=== PATIENT | female | born 1955 | race Caucasian/White ===

== ENCOUNTER 2019-01-06 11:44 | Emergency (ER) | payer OTHER ==
--- NOTE | 2019-01-06 12:10 | PDOC ---
History of Present Illness - General Chief Complaint: Migraine Headache Stated Complaint: HEADACHE Time Seen by Provider: 01/06/19 11:50 History Source: Patient Exam Limitations: No Limitations - History of Present Illness Initial Comments: 01/06/19 12:10 63y F hx of raynauds syndrome, htn, presents with intermittent headache for the past few months. Pt describes the headache as a pressure/aching sensation at the base of her R neck/scalp that is intermittent, lasts from minutes to maybe 1 /2 hr before resolving. She usually puts her hand on it and massages it with improvement - rarely needs to take any other medications for it. pt denies any recent injury, falls, vision changes, numbnes/tingling/weakness, neck pain, cp, sob, abd pain, n/v, feve/chills. there is no pattern to th epain, she feels it a few times a day throughout the day and is not associated with any movements/ positions or activities. socia: denies etoh abuse, drug use, not currently working Past History - Past Medical History Allergies/Adverse Reactions: Allergies Allergy/AdvReac Type Severity Reaction Status Date / Time No Known Allergies Allergy Verified 01/06/19 11:45 Home Medications: Ambulatory Orders Calcium 400 mg PO BID 04/29/14 Amlodipine Besylate 2.5 mg PO DAILY 01/06/19 Multivitamin/Iron/Folic Acid [Centrum Adults Tablet] 1 each PO DAILY 01/06/19 Anemia: No Asthma: No Cancer: No Cardiac Disorders: No CVA: No COPD: No CHF: No Dementia: No Diabetes: No GI Disorders: No Disorders: No HTN: No Hypercholesterolemia: No Liver Disease: No Seizures: No Thyroid Disease: No - Surgical History Abdominal Surgery: No Appendectomy: No Cardiac Surgery: No Cholecystectomy: No Lung Surgery: No Neurologic Surgery: No Orthopedic Surgery: Yes (RIGHT HIP REPLACEMENT) - Suicide/Smoking/Psychosocial Hx Smoking History: Former smoker Have you smoked in the past 12 months: No Hx Alcohol Use: No Drug/Substance Use Hx: No Substance Use Type: None Hx Substance Use Treatment: No Review of Systems - Review of Systems Able to Perform ROS?: Yes Comments:: 01/06/19 12:15 Constitutional - no reported Fever, Chills, HEENT: no reported vision changes, sore throat Respiratory: no reported cough, sob, hemoptysis Cardiac: no reported chest pain, palpitations, light headedness, leg swelling Abd/GI: no reported abd pain, nausea, vomiting, blood per rectum, melena, diarrhea : no reported dysuria, frequency, discharge Musculskelatal - no reported back pain, joint swelling skin - no reported bruising, erythema, rash neurological: no reported headache, numbness, focal weakness, tingling, ataxia, hematologic: no reported easy bruising, easy bleeding *Physical Exam - Physical Exam Comments: 01/06/19 12:15 GENERAL: The patient is awake, alert, and fully oriented, Nontoxic - in no acute distress. HEAD: Normocephalic, atraumatic. no temporal masses or pulseations, no focal tendernses EYES: extraocular movements intact, sclera anicteric, conjunctiva clear. ENT: Normal voice, Moist mucous membranes. NECK: Normal range of motion, supple, no rashes on neck, no focal bony or paraspinal tenderness LUNGS: Breath sounds equal, clear to auscultation bilaterally. No wheezes, no rhonchi, no rales. HEART: Regular rate and rhythm, normal S1 and S2 without murmur, rub or gallop. EXTREMITIES: Normal range of motion, no edema. PSYCH: Normal mood, normal affect. SKIN: Warm, Dry, normal turgor, NEURO: Mental status: The patient is oriented x3. Cranial nerves: Cranial nerves II through XII are intact Motor: The upper extremities are 5 over 5 in all muscle groups. The lower extremities are 5 over 5 in all muscle groups. Negative pronator drift Sensation: Sensation is intact to light touch throughout. romberg negative Cerebellar: Eosxzy-parkiw-gotc is normal in both upper extremities. Gait: Normal. Heel and toe walking are normal. Medical Decision Making - Medical Decision Making 01/06/19 12:15 suspect tension headache, possible muscle strain no current symptoms supportive care at home pmd fu return precautions were discussed I discussed the physical exam findings, ancillary test results and final diagnoses with the patient. I answered all of the patient's questions. The patient was satisfied with the care received and felt comfortable with the discharge plan and treatment plan. The patient will call their primary care physician within 24 hours to arrange follow-up and will return to the Emergency Department with any new, persistent or worsening symptoms. *DC/Admit/Observation/Transfer Diagnosis at time of Disposition: Tension headache - Discharge Dispostion Disposition: HOME Condition at time of disposition: Improved Decision to Admit order: No - Referrals Referrals: Andrew De Leon MD [Non Staff, Medical] - - Patient Instructions Printed Discharge Instructions: DI for Hormonal and Tension Headaches Additional Instructions: Return to the emergency department immediately with ANY new, persistent or worsening symptoms including worsening headache, vision changes, numbness/ tingling/weakness, persistent nausea and vomiting or any other concerns. Make sure you are getting adaqute sleep and hydration. You MUST call and follow up with your doctor as scheduled for further evaluation of your symptoms. Your emergency department visit is not complete without a followup with your doctor for reevaluation. Results were discussed with you. Please make sure your doctor reviews the results of your emergency evaluation. - Post Discharge Activity
[2019-01-06 12:13] VITALS: BP 135/70; PULSE 74; TEMP 98.5; BMI 26.2
== END 2019-01-06 12:14 | disposition home or self-care (01) ==
LOC: FER 11:44
DX: G44.209 Tension-type headache, unspecified, not intractable (principal); I10 Essential (primary) hypertension; I73.00 Raynaud's syndrome without gangrene; Z87.891 Personal history of nicotine dependence; Z96.641 Presence of right artificial hip joint
CPT/HCPCS: 99281-25

== ENCOUNTER 2019-04-10 11:57 | Emergency (ER) | payer OTHER ==
[2019-04-10 12:02] VITALS: BP 135/72; PULSE 88; TEMP 98.1; BMI 21.2
--- NOTE | 2019-04-10 12:16 | PDOC ---
Attending Attestation - Resident Resident Name: KrzysztofLorena - ED Attending Attestation I have performed the following: I have examined & evaluated the patient, The case was reviewed & discussed with the resident, I agree w/resident's findings & plan, Exceptions are as noted - HPI HPI: 04/10/19 12:28 63y F hx of reynauds, htn presents with 3-4 days of rash to her buttock Patient notes that the rash began as itchiness in her backside but noted that it seemed to spread to her groin,. Patient denies any fever, chills, pain, Denies any known allergies or new exposures. Exam: non indurated/not warm erythemadous patches on L superior aspect of L glutial fold, along thne inferior posterior L glutial fold and along the L medial anterior groin. suspect possibel S2 zoster will treat with valtrex will refer to PMD no signs of suprainfection return precautions were discussed - Physicial Exam PE: 04/10/19 13:29 see above - Medical Decision Making 04/10/19 13:29 see above
--- NOTE | 2019-04-10 13:00 | PDOC ---
History of Present Illness - General Chief Complaint: Rash Stated Complaint: rash Time Seen by Provider: 04/10/19 11:59 - History of Present Illness Initial Comments: 04/10/19 12:56 HPI: 63 y/o with hx of raynauds and HTN presenting with rash that started 3 days ago. It started on left lower back and she noticed additional areas of involvement including her buttock and left inguinal region. Rash is pruritic. She denies pain, numbness, tingling, fever, chills. She denies any drainage or foul odor. PMHx: as noted above ROS: as noted SHx: Denies tobacco use; no alcohol use; no rec drugs Allergies: NKDA ROS: GENERAL/CONSTITUTIONAL: No fever or chills. No weakness. HEAD, EYES, EARS, NOSE AND THROAT: No change in vision. No ear pain or discharge. No sore throat. CARDIOVASCULAR: No chest pain or shortness of breath RESPIRATORY: No cough, wheezing, or hemoptysis. GASTROINTESTINAL: No nausea, vomiting, diarrhea or constipation. GENITOURINARY: No dysuria, frequency, or change in urination. MUSCULOSKELETAL: No joint or muscle swelling or pain. No neck or back pain. SKIN: +rash NEUROLOGIC: No headache, vertigo, loss of consciousness, or change in strength/ sensation. ENDOCRINE: No increased thirst. No abnormal weight change HEMATOLOGIC/LYMPHATIC: No anemia, easy bleeding, or history of blood clots. ALLERGIC/IMMUNOLOGIC: No hives or skin allergy. PE: GENERAL: Awake, alert, and fully oriented, no acute distress HEAD: No signs of trauma, normocephalic, atraumatic EYES: EOMI, sclera anicteric, conjunctiva clear ENT: Auricles normal inspection, hearing grossly normal, nares patent, oropharynx clear without exudates. Moist mucosa NECK: Normal ROM, no lymphadenopathy LUNGS: No increased work of breathing, symmetrical chest rise, clear to auscultation bilaterally, no wheezes, crackles or rhonchi HEART: Regular rate and rhythm, normal S1 and S2, no murmurs, peripheral pulses 2+ and equal bilaterally. ABDOMEN: Soft, nondistended, nontender, normoactive bowel sounds. No guarding, no rebound. No masses. No CVAT MUSCULOSKELETAL: Normal inspection, FROM NEUROLOGICAL: Cranial nerves II through XII grossly intact. Normal speech, normal gait, no focal sensorimotor deficits SKIN: left low back with 2cm diameter erythematous base with central area of excoriation with similar focal appearance in medial gluteal region and left inguinal region; posterior rash appears along S2 dermatome. Past History - Past Medical History Allergies/Adverse Reactions: Allergies Allergy/AdvReac Type Severity Reaction Status Date / Time No Known Allergies Allergy Verified 04/10/19 11:58 Home Medications: Ambulatory Orders Valacyclovir HCl [Valtrex] 1,000 mg PO TID 7 Days #21 tablet 04/10/19 Anemia: No Asthma: No Cancer: No Cardiac Disorders: No CVA: No COPD: No CHF: No Dementia: No Diabetes: No GI Disorders: No Disorders: No HTN: No Hypercholesterolemia: No Liver Disease: No Seizures: No Thyroid Disease: No - Surgical History Abdominal Surgery: No Appendectomy: No Cardiac Surgery: No Cholecystectomy: No Lung Surgery: No Neurologic Surgery: No Orthopedic Surgery: Yes (RIGHT HIP REPLACEMENT) - Psycho Social/Smoking Cessation Hx Smoking History: Never smoked Have you smoked in the past 12 months: No Hx Alcohol Use: No Drug/Substance Use Hx: No Substance Use Type: None Hx Substance Use Treatment: No *Physical Exam - Vital Signs Last Vital Signs Temp Pulse Resp BP Pulse Ox 98.1 F 88 18 135/72 100 04/10/19 11:57 04/10/19 11:57 04/10/19 11:57 04/10/19 11:57 04/10/19 11:57 Medical Decision Making - Medical Decision Making 04/10/19 13:03 63 y/o with hx of raynauds and HTN presenting with rash that started 3 days ago which appears to be along S2 dermatome with additional inguinal legion. VSS, AF. -appearance not typical shingles, but will treat empirically with valtrex x7days and DC with PCP followup -patient understands and plan and contact precautions; all questions answered. Discharge - Discharge Information Problems reviewed: Yes Clinical Impression/Diagnosis: Rash Condition: Stable Disposition: HOME - Additional Discharge Information Prescriptions: Valacyclovir HCl [Valtrex] 1,000 mg PO TID 7 Days #21 tablet - Follow up/Referral - Patient Discharge Instructions Patient Printed Discharge Instructions: DI for Shingles Additional Instructions: Additional Instructions: Please return to the emergency department with any new or worsening symptoms or concerns. Please follow up with your primary care physician this week for rash re- evaluation Please take valtrex 1000mg three times a day for 7 days. Please avoid contact with children, women, elderly to decrease risk of infection - Post Discharge Activity
== END 2019-04-10 13:06 | disposition home or self-care (01) ==
LOC: FER 11:57
DX: R21 Rash and other nonspecific skin eruption (principal); I10 Essential (primary) hypertension; I73.00 Raynaud's syndrome without gangrene; Z96.641 Presence of right artificial hip joint
CPT/HCPCS: 99281-25

== ENCOUNTER 2023-03-29 04:20 | Day surgery (SDC) | payer OTHER, BC ==
[2023-03-24 12:20] VITALS: BMI 25.9
[2023-03-29 10:31] VITALS: TEMP 97.9
[2023-03-29 11:09] VITALS: BP 128/58; PULSE 57; RESP 26
== END 2023-03-29 12:00 | disposition home or self-care (01) ==
LOC: JASU-ENDO 04:20
PROVIDERS: ATTEND Internal Medicine Gastroenterology
PROC: 0DJD8ZZ Inspection of Lower Intestinal Tract, Via Natural or Artificial Opening Endoscopic (ICD-10-PCS; principal; 2023-03-29 10:00)
DX: Z12.11 Encounter for screening for malignant neoplasm of colon (principal); K64.8 Other hemorrhoids; K57.30 Diverticulosis of large intestine without perforation or abscess without bleeding; K63.89 Other specified diseases of intestine